=== PATIENT | male | born 1965 | race African-American/Black ===

== ENCOUNTER 2016-09-24 10:40 | Inpatient (IN) | payer OTHER ==
[2016-09-24 11:53] VITALS: BMI 32.5
--- NOTE | 2016-09-24 16:35 | HP ---
Admission ROS [facility] Chief Complaint: I WANT TO GO TO REHAB Allergies/Adverse Reactions: Allergies Allergy/AdvReac Type Severity Reaction Status Date / Time No Known Allergies Allergy Verified 09/24/16 15:08 History of Present Illness: 51 YEARS OLD MALE WITH LONG HISTORY OF ALCOHOL NICOTINE DEPENDENCE HAS CHRONIC LOWER BACK PAIN TRATED WITH GABAPENTIN GASTRIC BY PASS 2002, POSITIVE PPD CONSTIPATION AND SCHIZOPHRENIA IS ADMITTED TO REHAB Exam Limitations: No Limitations - Ebola screening Have you traveled outside of the country in the last 21 days: No Have you had contact with anyone from an Ebola affected area: No Have you been sick,other than usual withdrawal symptoms: No Do you have a fever: No - Review of Systems Constitutional: Weight Stable EENT: reports: Dental Problems (UPPER TEETH MISSING NO DENTURE) Respiratory: reports: No Symptoms reported Cardiac: reports: No Symptoms Reported GI: reports: Constipated : reports: No Symptoms Reported Musculoskeletal: reports: Back Pain Integumentary: reports: No Symptoms Reported Neuro: reports: No Symptoms reported Endocrine: reports: No Symptoms Reported Hematology: reports: No Symptoms Reported Psychiatric: reports: Judgement Intact, Mood/Affect Appropiate, Orientated x3 Other Systems: Reviewed and Negative Patient History - Patient Medical History Hx Anemia: No Hx Asthma: No Hx Chronic Obstructive Pulmonary Disease (COPD): No Hx Cancer: No Hx Cardiac Disorders: No Hx Congestive Heart Failure: No Hx Hypertension: No Hx Hypercholesterolemia: No Hx Pacemaker: No HX Cerebrovascular Accident: No Hx Seizures: No Hx Dementia: No Hx Diabetes: No Hx Gastrointestinal Disorders: No Hx Liver Disease: No Hx Genitourinary Disorders: No Hx Sexually Transmitted Disorders: No Hx Renal Disease (ESRD): No Hx Thyroid Disease: No Hx Human Immunodeficiency Virus (HIV): No (last 09/19 negative) Hx Hepatitis C: No Hx Depression: No Hx Suicide Attempt: Yes (overdose in 2013 [facility]) Hx Bipolar Disorder: No Hx Schizophrenia: Yes (shizoaffective disorder,) - Patient Surgical History Past Surgical History: Yes Hx Neurologic Surgery: No Hx Cataract Extraction: No Hx Cardiac Surgery: No Hx Lung Surgery: No Hx Breast Surgery: No Hx Breast Biopsy: No Hx Abdominal Surgery: Yes (2002) Hx Appendectomy: No Hx Cholecystectomy: No Hx Genitourinary Surgery: No Hx Orthopedic Surgery: No Other Surgical History: s/p tracheostomy for obstructive apnea,s/p gastric by pass surgery Anesthesia Reaction: No - PPD History Previous Implant?: Yes Documented Results: Negative w/o proof Implanted On Prior R Admission?: Yes Date: 10/16/14 Results: Negative in [place] PPD to be Administered?: Yes - Smoking Cessation Smoking history: Current every day smoker Have you smoked in the past 12 months: Yes Aproximately how many cigarettes per day: 6 Cigars Per Day: 0 Hx Chewing Tobacco Use: No Initiated information on smoking cessation: Yes 'Breaking Loose' booklet given: 09/24/16 - Substance & Tx. History Hx Alcohol Use: Yes Hx Substance Use: Yes Substance Use Type: Alcohol, Cocaine Hx Substance Use Treatment: Yes (10/13-11/08/14 [facility]) - Substances Abused Alcohol Route: Oral Frequency: Daily Amount used: MYNOR MONTIEL Age of first use: 11 Date of Last Use: 08/27/16 Family Disease History - Family Disease History Family Disease History: Heart Disease: Father (), Mother, Other: Brother (NO CONTACT) Admission Physical Exam S - Vital Signs Vital Signs: Vital Signs - 24 hr 09/24/16 11:51 Temperature 97.5 F L Pulse Rate 100 H Respiratory 18 Rate Blood Pressure 108/59 - Physical General Appearance: Yes: No Apparent Distress, Appropriately Dressed, Obese HEENTM: Yes: Hearing grossly Normal, Normal ENT Inspection, Normocephalic, Normal Voice, Other (MULTIPLE TEETH MISSING) Respiratory: Yes: Chest Non-Tender, Lungs Clear, Normal Breath Sounds, No Respiratory Distress, No Accessory Muscle Use Neck: Yes: Supple, Trachea in good position Breast: Yes: Breasts Symetrical Cardiology: Yes: Regular Rhythm, S1, S2, Tachycardia Abdominal: Yes: Non Tender, Soft, Decreased BS, Surgical Scar (2002) Genitourinary: Yes: Within Normal Limits Back: Yes: Normal Inspection, Other (CHRONIC LOWER BACK PAIN) Musculoskeletal: Yes: full range of Motion, Gait Steady, Back pain Extremities: Yes: Normal Inspection, Normal Range of Motion, Non-Tender Neurological: Yes: Fully Oriented, Alert, Motor Strength 5/5, Normal Mood/Affect , Normal Response Integumentary: Yes: Normal Color, Warm Lymphatic: Yes: Within Normal Limits - Diagnostic (1) Nicotine dependence Current Visit: Yes Status: Acute Qualifiers: Nicotine product type: cigarettes Substance use status: in withdrawal Qualified Code(s): F17.213 - Nicotine dependence, cigarettes, with withdrawal (2) Alcohol dependence with uncomplicated withdrawal Current Visit: Yes Status: Acute (3) Cocaine dependence, uncomplicated Current Visit: Yes Status: Chronic (4) Constipation by delayed colonic transit Current Visit: Yes Status: Chronic (5) Chronic lower back pain Current Visit: Yes Status: Chronic Qualifiers: Back pain laterality: midline Sciatica presence: with sciatica Qualified Code(s): - (6) S/P gastric bypass Current Visit: Yes Status: Resolved (7) Schizophrenia Current Visit: Yes Status: Chronic Qualifiers: Schizophrenia type: other Qualified Code(s): F20.89 - Other schizophrenia; F20.8 - Other schizophrenia Cleared for Admission [facility] - Detox or Rehab [facility] Level of Care: Observation Bed Detox Regimen/Protocol: Not Applicable Claeared for Rehab Admission: Yes [facility] Breath Alcohol Content Breath Alcohol Content: 0 Urine Drug Screen - Results Drug Screen Negative: Yes
[2016-09-24] MEDS ORDERED: diphenhydrAMINE HCL 50 MG CAPSULE PO PRN (16:38)
[2016-09-24] MEDS ORDERED: LOPERAMIDE HCL 2 MG CAPSULE PO PRN (16:38)
[2016-09-24] MEDS ORDERED: ACETAMINOPHEN 325 MG TABLET (FP) PO PRN (16:38)
[2016-09-24] MEDS ORDERED: guaiFENesin/D-METHORPHAN HB 10 ML UNIT-DOSE CUPS PO PRN (16:38)
[2016-09-24] MEDS ORDERED: MAGNESIUM HYDROX 2400MG/30ML ORAL SUSPENSION 30 ML CUP PO PRN (16:38)
[2016-09-24] MEDS ORDERED: MENTHOL/PHENOL 1 EACH UD MM PRN (16:38)
[2016-09-24] MEDS ORDERED: MAG HYDROX/AL HYDROX/SIMETH 30 ML UNIT-DOSE CUP PO PRN (16:38)
[2016-09-24] MEDS ORDERED: hydrOXYzine PAMOATE 50 MG CAPSULE (FP) PO PRN (16:38)
[2016-09-24] MEDS ORDERED: P-EPHED 60MG/TRIPROLIDI 2.5MG TABLET PO PRN (16:38)
[2016-09-24] MEDS ORDERED: NICOTINE POLACRILEX 2 MG GUM BC PRN (16:38)
[2016-09-24] MEDS ORDERED: IBUPROFEN 400 MG TABLET (FP) PO PRN (16:38)
[2016-09-24] MEDS ORDERED: MAGNESIUM CITRATE 300 ML BOTTLE PO PRN (16:38)
[2016-09-24] MEDS: risperiDONE 2 MG TABLET PO SCH (21:55)
[2016-09-24] MEDS: DIVALPROEX SODIUM 250 MG TABLET E.C. (FP) PO SCH (21:55)
[2016-09-24] MEDS: THIAMINE HCL 100 MG TABLET (FP) PO SCH (21:55)
[2016-09-24] MEDS: DOCUSATE SODIUM 100 MG CAPSULE (FP) PO SCH (21:55)
[2016-09-24] MEDS ORDERED: BENZTROPINE MESYLATE 0.5 MG TABLET (FP) PO SCH (22:00)
[2016-09-24] MEDS: GABAPENTIN 300 MG CAPSULE (FP) PO SCH (22:22)
[2016-09-24] MEDS ORDERED: PT OWN MED DRAWER 7, Y5N ONE (22:52)
--- NOTE | 2016-09-25 06:58 | HP ---
Psychiatrist Admission - Data Date of interview: 09/25/16 Admission source: [facility] Identifying data: This is the second [facility] admission for this 51 years Black male, father of 4 children, unemployed on SSI, homeless Medical History: Significant for chronic LBP, S/P Gastric bypass surgery. Smoke 6 cigarettes daily Psychiatric History: Reports that his first psychiatric contact wasin 2006 when he was treated with psychotherapy for depression at [facility]. His first psychiatric admissions was in 2008 when he was admitted to a psychiatric hospital for suicidal attempt by taking overdose of pills. Reports 3 subsequent admissions for auditory hallucinations, suicidal ideations and depression to [facility] in 2014 & 2016 and most recently to [facility] for 2 weeks. He was discharged yesterday on Depakote 750 mg po BID, Risperdal 2 mg po BID and Cogentin 0.5 mg po BID and referred here for inpt rehab. He is diagnosed with Schizoaffectve Disorder. At present, denies experiencing psychotic, manic or depressive symptoms as wel as SI/HI Physical/Sexual Abuse/Trauma History: Denies history of emotional, physical or sexual abuse as well as DV relationship Additional Comment: Reports history of multiple previous arrests including felony convictions. Claims he does not recall number of felony convictions. Denies being on parole/probation at present Vital Signs: Vital Signs - 24 hr 09/24/16 09/25/16 11:51 03:30 Temperature 97.5 F L Pulse Rate 100 H Respiratory 18 18 Rate Blood Pressure 108/59 Allergies/Adverse Reactions: Allergies Allergy/AdvReac Type Severity Reaction Status Date / Time No Known Allergies Allergy Verified 09/24/16 15:08 Date of last physical exam: 09/24/16 Concur with the findings of this exam: Yes - Substance Abuse/Tx History Hx Alcohol Use: Yes Hx Substance Use: No Substance Use Type: Alcohol (Started drinking alcohol at age 11, consumes one gallon of vodka daily. Last drink on 08/27/16) Hx Substance Use Treatment: Yes (4 previous inpt detox & 4 inpt rehab) - Admission Criteria Previous failed treatment: Yes Poor recovery environment: Yes Comorbidities: Yes Lacks judgement: Yes Mental Status Exam - Mental Status Exam Alert and Oriented to: Time, Place, Person Cognitive Function: Fair Patient Appearance: Disheveled Mood: Hopeful, Euthymic Affect: Blunted Patient Behavior: Cooperative Speech Pattern: Clear Voice Loudness: Normal Thought Process: Intact Thought Disorder: Not Present Hallucinations: Denies Suicidal Ideation: Denies Homicidal Ideation: Denies Insight/Judgement: Fair Sleep: Fair Appetite: Good Muscle strength/Tone: Normal Gait/Station: Normal Psychiatric Findings - Problem List ([place] 1, 2,3) (1) Alcohol dependence with uncomplicated withdrawal Current Visit: Yes Status: Acute (2) Nicotine dependence Current Visit: Yes Status: Acute Qualifiers: Nicotine product type: cigarettes Substance use status: in withdrawal Qualified Code(s): F17.213 - Nicotine dependence, cigarettes, with withdrawal (3) Schizoaffective disorder Current Visit: No Status: Acute (4) Chronic lower back pain Current Visit: Yes Status: Chronic Qualifiers: Back pain laterality: midline Sciatica presence: with sciatica (5) S/P gastric bypass Current Visit: Yes Status: Resolved (6) Status post tracheostomy Current Visit: No Status: Acute (7) Cocaine dependence, uncomplicated Current Visit: Yes Status: Chronic - Initial Treatment Plan Initial Treatment Plan: 1) Continue Depakote 750 mg po BID, Riperdal 2 mg po BID and Cogentin 0.5 mg po BID. 2) Valproic Acid serum level. 3) Monitor progress
[2016-09-25] MEDS: GABAPENTIN 300 MG CAPSULE (FP) PO SCH ×3 (07:05→21:11)
[2016-09-25 07:52] LABS: URINE APPEARANCE CLEAR; URINE BILIRUBIN NEGATIVE (NEGATIVE); URINE BLOOD NEGATIVE (NEGATIVE); URINE COLOR YELLOW; URINE GLUCOSE (UA) 1+ (NEGATIVE); URINE KETONE TRACE (NEGATIVE); URINE NITRITE NEGATIVE (NEGATIVE); URINE PROTEIN NEGATIVE (NEGATIVE); URINE UROBILINOGEN NEGATIVE E.U./dl (0.2-1.0)
[2016-09-25 07:54] LABS: URINE LEUK ESTERASE TRACE (NEGATIVE)
[2016-09-25 08:54] LABS: URINE MUCUS RARE; URINE WBC 12 /hpf (3-5)
[2016-09-25 09:48] LABS: MCH 31.8 pg (25.7-33.7); MCHC 32.8 g/dl (32.0-35.9); MEAN CELL VOLUME 96.8 fl (80-96); PLATELET COUNT 154 K/MM3 (134-434); WHITE BLOOD COUNT 7.4 K/mm3 (4.0-10.0)
[2016-09-25 10:16] LABS: ALBUMIN 3.3 g/dl (3.4-5.0); ANION GAP 8 (8-16); CALCIUM 9.1 mg/dL (8.5-10.1); CO2 30 mmol/L (21-32); GLUCOSE,RANDOM 91 mg/dL (74-106)
[2016-09-25] MEDS: PRENATAL VITAMINS W/ FOLIC ACID TABLET (FP) PO SCH (10:16)
[2016-09-25] MEDS: DOCUSATE SODIUM 100 MG CAPSULE (FP) PO SCH ×2 (10:16→21:10)
[2016-09-25] MEDS: risperiDONE 2 MG TABLET PO SCH ×2 (10:16→21:11)
[2016-09-25] MEDS: DIVALPROEX SODIUM 250 MG TABLET E.C. (FP) PO SCH ×2 (10:17→21:10)
[2016-09-25] MEDS: BENZTROPINE MESYLATE 1 MG TABLET (FP) PO SCH ×2 (10:18→22:00)
[2016-09-25] MEDS: NICOTINE 14 MG/24 HOURS TOPICAL PATCH TD SCH (10:19)
[2016-09-25 10:20] LABS: ALK PHOS 80 U/L (45-117); BILIRUBIN,TOTAL 0.6 mg/dL (0.2-1.0); CREATININE 0.9 mg/dL (0.7-1.3); SGOT/AST 14 U/L (15-37); SGPT/ALT 24 U/L (12-78); TOT PROT 7.4 g/dl (6.4-8.2)
[2016-09-25 11:05] LABS: HIV 1 & 2 AB NEGATIVE; HIV 1 AGp24 NEGATIVE
--- NOTE | 2016-09-25 11:05 | EKG ---
Test Reason : Blood Pressure : / mmHG Vent. Rate : 087 BPM Atrial Rate : 087 BPM P-R Int : 150 ms QRS Dur : 082 ms QT Int : 352 ms P-R-T Axes : 070 049 039 degrees QTc Int : 423 ms NORMAL SINUS RHYTHM NORMAL ECG NO PREVIOUS ECGS AVAILABLE Confirmed by NORI AVINA, NARGIS ([id number]) on 09/25/2016 11:05:00 AM Referred By: Confirmed By:NARGIS JULIO MD
[2016-09-25] MEDS: THIAMINE HCL 100 MG TABLET (FP) PO SCH (21:10)
[2016-09-26] MEDS: GABAPENTIN 300 MG CAPSULE (FP) PO SCH ×3 (06:22→22:22)
[2016-09-26] MEDS: PRENATAL VITAMINS W/ FOLIC ACID TABLET (FP) PO SCH (09:37)
[2016-09-26] MEDS: risperiDONE 2 MG TABLET PO SCH ×2 (09:38→21:26)
[2016-09-26] MEDS: BENZTROPINE MESYLATE 1 MG TABLET (FP) PO SCH ×2 (09:38→21:26)
[2016-09-26] MEDS: DIVALPROEX SODIUM 250 MG TABLET E.C. (FP) PO SCH ×2 (09:38→22:21)
[2016-09-26] MEDS: DOCUSATE SODIUM 100 MG CAPSULE (FP) PO SCH ×2 (09:39→21:27)
[2016-09-26] MEDS: NICOTINE 14 MG/24 HOURS TOPICAL PATCH TD SCH (09:41)
[2016-09-26] MEDS: THIAMINE HCL 100 MG TABLET (FP) PO SCH (21:27)
[2016-09-26] MEDS: AMMONIUM LACTATE 12% LOTION 225 GM BOTTLE TP SCH (22:55)
[2016-09-27] MEDS: DOCUSATE SODIUM 100 MG CAPSULE (FP) PO SCH ×3 (06:46→21:26)
[2016-09-27] MEDS: GABAPENTIN 300 MG CAPSULE (FP) PO SCH ×3 (06:46→21:27)
[2016-09-27] MEDS: FERROUS SO4 325 MG TABLET (FP) PO SCH (07:02)
[2016-09-27] MEDS: PRENATAL VITAMINS W/ FOLIC ACID TABLET (FP) PO SCH (10:16)
[2016-09-27] MEDS: DIVALPROEX SODIUM 250 MG TABLET E.C. (FP) PO SCH ×2 (10:16→21:26)
[2016-09-27] MEDS: risperiDONE 2 MG TABLET PO SCH ×2 (10:16→21:25)
[2016-09-27] MEDS: FOLIC ACID 1 MG TABLET (FP) PO SCH (10:17)
[2016-09-27] MEDS: BENZTROPINE MESYLATE 1 MG TABLET (FP) PO SCH ×2 (10:17→21:28)
[2016-09-27] MEDS: AMMONIUM LACTATE 12% LOTION 225 GM BOTTLE TP SCH ×2 (10:17→21:27)
[2016-09-27] MEDS: NICOTINE 14 MG/24 HOURS TOPICAL PATCH TD SCH (10:17)
[2016-09-27] MEDS: THIAMINE HCL 100 MG TABLET (FP) PO SCH (21:25)
[2016-09-28] MEDS: GABAPENTIN 300 MG CAPSULE (FP) PO SCH ×3 (06:13→21:05)
[2016-09-28] MEDS: DOCUSATE SODIUM 100 MG CAPSULE (FP) PO SCH ×3 (06:13→21:05)
[2016-09-28] MEDS: FERROUS SO4 325 MG TABLET (FP) PO SCH (07:05)
[2016-09-28] MEDS: BENZTROPINE MESYLATE 1 MG TABLET (FP) PO SCH ×2 (10:03→21:06)
[2016-09-28] MEDS: DIVALPROEX SODIUM 250 MG TABLET E.C. (FP) PO SCH ×2 (10:03→21:05)
[2016-09-28] MEDS: risperiDONE 2 MG TABLET PO SCH ×2 (10:03→21:05)
[2016-09-28] MEDS: FOLIC ACID 1 MG TABLET (FP) PO SCH (10:03)
[2016-09-28] MEDS: PRENATAL VITAMINS W/ FOLIC ACID TABLET (FP) PO SCH (10:03)
[2016-09-28] MEDS: AMMONIUM LACTATE 12% LOTION 225 GM BOTTLE TP SCH ×2 (10:05→21:06)
[2016-09-28] MEDS: NICOTINE 14 MG/24 HOURS TOPICAL PATCH TD SCH (10:05)
[2016-09-28] MEDS: THIAMINE HCL 100 MG TABLET (FP) PO SCH (21:05)
[2016-09-29] MEDS: GABAPENTIN 300 MG CAPSULE (FP) PO SCH ×3 (06:15→21:04)
[2016-09-29] MEDS: DOCUSATE SODIUM 100 MG CAPSULE (FP) PO SCH ×3 (06:15→21:03)
[2016-09-29] MEDS: FERROUS SO4 325 MG TABLET (FP) PO SCH (07:10)
[2016-09-29] MEDS: risperiDONE 2 MG TABLET PO SCH ×2 (10:20→21:03)
[2016-09-29] MEDS: BENZTROPINE MESYLATE 1 MG TABLET (FP) PO SCH ×2 (10:20→21:04)
[2016-09-29] MEDS: PRENATAL VITAMINS W/ FOLIC ACID TABLET (FP) PO SCH (10:20)
[2016-09-29] MEDS: DIVALPROEX SODIUM 250 MG TABLET E.C. (FP) PO SCH ×2 (10:20→22:09)
[2016-09-29] MEDS: FOLIC ACID 1 MG TABLET (FP) PO SCH (10:20)
[2016-09-29] MEDS: NICOTINE 14 MG/24 HOURS TOPICAL PATCH TD SCH (10:21)
[2016-09-29] MEDS: AMMONIUM LACTATE 12% LOTION 225 GM BOTTLE TP SCH ×2 (10:21→23:31)
[2016-09-29] MEDS: THIAMINE HCL 100 MG TABLET (FP) PO SCH (21:03)
[2016-09-30] MEDS: DOCUSATE SODIUM 100 MG CAPSULE (FP) PO SCH ×3 (06:29→21:06)
[2016-09-30] MEDS: GABAPENTIN 300 MG CAPSULE (FP) PO SCH ×3 (06:29→21:06)
[2016-09-30] MEDS: FERROUS SO4 325 MG TABLET (FP) PO SCH (07:21)
[2016-09-30] MEDS: FOLIC ACID 1 MG TABLET (FP) PO SCH (10:29)
[2016-09-30] MEDS: AMMONIUM LACTATE 12% LOTION 225 GM BOTTLE TP SCH ×2 (10:30→21:06)
[2016-09-30] MEDS: NICOTINE 14 MG/24 HOURS TOPICAL PATCH TD SCH (10:30)
[2016-09-30] MEDS: PRENATAL VITAMINS W/ FOLIC ACID TABLET (FP) PO SCH (10:31)
[2016-09-30] MEDS: BENZTROPINE MESYLATE 1 MG TABLET (FP) PO SCH ×2 (10:31→21:06)
[2016-09-30] MEDS: risperiDONE 2 MG TABLET PO SCH ×2 (10:31→21:06)
[2016-09-30] MEDS: DIVALPROEX SODIUM 250 MG TABLET E.C. (FP) PO SCH ×2 (11:39→21:05)
[2016-09-30] MEDS: THIAMINE HCL 100 MG TABLET (FP) PO SCH (21:05)
[2016-10-01] MEDS: DOCUSATE SODIUM 100 MG CAPSULE (FP) PO SCH ×3 (06:17→21:09)
[2016-10-01] MEDS: GABAPENTIN 300 MG CAPSULE (FP) PO SCH ×3 (06:17→22:07)
[2016-10-01] MEDS: FERROUS SO4 325 MG TABLET (FP) PO SCH (07:40)
[2016-10-01] MEDS: risperiDONE 2 MG TABLET PO SCH ×2 (10:16→21:08)
[2016-10-01] MEDS: DIVALPROEX SODIUM 250 MG TABLET E.C. (FP) PO SCH ×2 (10:16→21:08)
[2016-10-01] MEDS: BENZTROPINE MESYLATE 1 MG TABLET (FP) PO SCH ×2 (10:16→21:09)
[2016-10-01] MEDS: PRENATAL VITAMINS W/ FOLIC ACID TABLET (FP) PO SCH (10:16)
[2016-10-01] MEDS: FOLIC ACID 1 MG TABLET (FP) PO SCH (10:16)
[2016-10-01] MEDS: AMMONIUM LACTATE 12% LOTION 225 GM BOTTLE TP SCH ×2 (10:17→21:08)
[2016-10-01] MEDS: NICOTINE 14 MG/24 HOURS TOPICAL PATCH TD SCH (10:17)
[2016-10-01] MEDS: THIAMINE HCL 100 MG TABLET (FP) PO SCH (21:08)
[2016-10-02] MEDS: GABAPENTIN 300 MG CAPSULE (FP) PO SCH ×3 (06:08→21:39)
[2016-10-02] MEDS: DOCUSATE SODIUM 100 MG CAPSULE (FP) PO SCH ×3 (06:08→21:39)
[2016-10-02] MEDS: FERROUS SO4 325 MG TABLET (FP) PO SCH (07:04)
[2016-10-02] MEDS: PRENATAL VITAMINS W/ FOLIC ACID TABLET (FP) PO SCH (09:53)
[2016-10-02] MEDS: risperiDONE 2 MG TABLET PO SCH ×2 (09:53→21:39)
[2016-10-02] MEDS: DIVALPROEX SODIUM 250 MG TABLET E.C. (FP) PO SCH ×2 (09:54→21:39)
[2016-10-02] MEDS: FOLIC ACID 1 MG TABLET (FP) PO SCH (09:54)
[2016-10-02] MEDS: BENZTROPINE MESYLATE 1 MG TABLET (FP) PO SCH ×2 (09:54→21:40)
[2016-10-02] MEDS: AMMONIUM LACTATE 12% LOTION 225 GM BOTTLE TP SCH ×2 (09:55→21:40)
[2016-10-02] MEDS: NICOTINE 14 MG/24 HOURS TOPICAL PATCH TD SCH (12:45)
[2016-10-02] MEDS: THIAMINE HCL 100 MG TABLET (FP) PO SCH (21:39)
[2016-10-03] MEDS: DOCUSATE SODIUM 100 MG CAPSULE (FP) PO SCH ×3 (06:17→21:41)
[2016-10-03] MEDS: GABAPENTIN 300 MG CAPSULE (FP) PO SCH ×3 (06:17→21:41)
[2016-10-03] MEDS: FERROUS SO4 325 MG TABLET (FP) PO SCH (07:46)
[2016-10-03] MEDS: DIVALPROEX SODIUM 250 MG TABLET E.C. (FP) PO SCH ×2 (09:59→21:41)
[2016-10-03] MEDS: risperiDONE 2 MG TABLET PO SCH ×2 (09:59→21:41)
[2016-10-03] MEDS: BENZTROPINE MESYLATE 1 MG TABLET (FP) PO SCH ×2 (09:59→21:43)
[2016-10-03] MEDS: PRENATAL VITAMINS W/ FOLIC ACID TABLET (FP) PO SCH (10:00)
[2016-10-03] MEDS: NICOTINE 14 MG/24 HOURS TOPICAL PATCH TD SCH (10:00)
[2016-10-03] MEDS: FOLIC ACID 1 MG TABLET (FP) PO SCH (10:00)
[2016-10-03] MEDS: AMMONIUM LACTATE 12% LOTION 225 GM BOTTLE TP SCH ×2 (10:02→21:43)
[2016-10-03] MEDS: THIAMINE HCL 100 MG TABLET (FP) PO SCH (21:41)
[2016-10-04] MEDS: DOCUSATE SODIUM 100 MG CAPSULE (FP) PO SCH ×4 (06:14→21:33)
[2016-10-04] MEDS: GABAPENTIN 300 MG CAPSULE (FP) PO SCH ×4 (06:14→21:34)
[2016-10-04] MEDS: FERROUS SO4 325 MG TABLET (FP) PO SCH (07:20)
[2016-10-04] MEDS: BENZTROPINE MESYLATE 1 MG TABLET (FP) PO SCH ×2 (10:12→21:35)
[2016-10-04] MEDS: FOLIC ACID 1 MG TABLET (FP) PO SCH (10:12)
[2016-10-04] MEDS: AMMONIUM LACTATE 12% LOTION 225 GM BOTTLE TP SCH ×2 (10:12→21:35)
[2016-10-04] MEDS: DIVALPROEX SODIUM 250 MG TABLET E.C. (FP) PO SCH ×2 (10:12→21:34)
[2016-10-04] MEDS: risperiDONE 2 MG TABLET PO SCH ×2 (10:12→21:34)
[2016-10-04] MEDS: NICOTINE 14 MG/24 HOURS TOPICAL PATCH TD SCH (10:13)
[2016-10-04] MEDS: PRENATAL VITAMINS W/ FOLIC ACID TABLET (FP) PO SCH (10:13)
[2016-10-04] MEDS: THIAMINE HCL 100 MG TABLET (FP) PO SCH (21:33)
[2016-10-05] MEDS: GABAPENTIN 300 MG CAPSULE (FP) PO SCH ×3 (06:16→21:47)
[2016-10-05] MEDS: DOCUSATE SODIUM 100 MG CAPSULE (FP) PO SCH ×3 (06:16→21:47)
[2016-10-05] MEDS: FERROUS SO4 325 MG TABLET (FP) PO SCH (07:46)
[2016-10-05] MEDS: DIVALPROEX SODIUM 250 MG TABLET E.C. (FP) PO SCH ×2 (09:58→21:47)
[2016-10-05] MEDS: risperiDONE 2 MG TABLET PO SCH ×2 (09:58→21:47)
[2016-10-05] MEDS: BENZTROPINE MESYLATE 1 MG TABLET (FP) PO SCH ×2 (09:59→21:48)
[2016-10-05] MEDS: NICOTINE 14 MG/24 HOURS TOPICAL PATCH TD SCH (09:59)
[2016-10-05] MEDS: PRENATAL VITAMINS W/ FOLIC ACID TABLET (FP) PO SCH (09:59)
[2016-10-05] MEDS: FOLIC ACID 1 MG TABLET (FP) PO SCH (09:59)
[2016-10-05] MEDS: AMMONIUM LACTATE 12% LOTION 225 GM BOTTLE TP SCH ×2 (09:59→22:01)
[2016-10-05] MEDS: THIAMINE HCL 100 MG TABLET (FP) PO SCH (21:47)
[2016-10-06] MEDS: DOCUSATE SODIUM 100 MG CAPSULE (FP) PO SCH ×3 (06:17→21:38)
[2016-10-06] MEDS: GABAPENTIN 300 MG CAPSULE (FP) PO SCH ×3 (06:17→21:38)
[2016-10-06] MEDS: FERROUS SO4 325 MG TABLET (FP) PO SCH (07:35)
[2016-10-06] MEDS: risperiDONE 2 MG TABLET PO SCH ×2 (10:02→21:38)
[2016-10-06] MEDS: FOLIC ACID 1 MG TABLET (FP) PO SCH (10:02)
[2016-10-06] MEDS: DIVALPROEX SODIUM 250 MG TABLET E.C. (FP) PO SCH ×2 (10:02→21:38)
[2016-10-06] MEDS: PRENATAL VITAMINS W/ FOLIC ACID TABLET (FP) PO SCH (10:02)
[2016-10-06] MEDS: NICOTINE 14 MG/24 HOURS TOPICAL PATCH TD SCH (10:03)
[2016-10-06] MEDS: BENZTROPINE MESYLATE 1 MG TABLET (FP) PO SCH ×2 (10:03→21:39)
[2016-10-06] MEDS: AMMONIUM LACTATE 12% LOTION 225 GM BOTTLE TP SCH ×2 (10:04→21:40)
[2016-10-06] MEDS: THIAMINE HCL 100 MG TABLET (FP) PO SCH (21:38)
[2016-10-07] MEDS: DOCUSATE SODIUM 100 MG CAPSULE (FP) PO SCH ×3 (06:24→21:02)
[2016-10-07] MEDS: GABAPENTIN 300 MG CAPSULE (FP) PO SCH ×3 (06:25→21:01)
[2016-10-07] MEDS: FERROUS SO4 325 MG TABLET (FP) PO SCH (07:23)
[2016-10-07] MEDS: BENZTROPINE MESYLATE 1 MG TABLET (FP) PO SCH ×2 (10:27→21:02)
[2016-10-07] MEDS: AMMONIUM LACTATE 12% LOTION 225 GM BOTTLE TP SCH ×2 (10:28→21:02)
[2016-10-07] MEDS: risperiDONE 2 MG TABLET PO SCH ×2 (10:28→21:02)
[2016-10-07] MEDS: FOLIC ACID 1 MG TABLET (FP) PO SCH (10:28)
[2016-10-07] MEDS: PRENATAL VITAMINS W/ FOLIC ACID TABLET (FP) PO SCH (10:28)
[2016-10-07] MEDS: DIVALPROEX SODIUM 250 MG TABLET E.C. (FP) PO SCH ×2 (10:28→21:01)
[2016-10-07] MEDS: NICOTINE 14 MG/24 HOURS TOPICAL PATCH TD SCH (10:29)
[2016-10-07] MEDS: THIAMINE HCL 100 MG TABLET (FP) PO SCH (21:01)
[2016-10-08] MEDS: GABAPENTIN 300 MG CAPSULE (FP) PO SCH ×3 (06:24→21:02)
[2016-10-08] MEDS: DOCUSATE SODIUM 100 MG CAPSULE (FP) PO SCH ×3 (06:25→21:02)
[2016-10-08] MEDS: FERROUS SO4 325 MG TABLET (FP) PO SCH (07:21)
[2016-10-08] MEDS: PRENATAL VITAMINS W/ FOLIC ACID TABLET (FP) PO SCH (10:08)
[2016-10-08] MEDS: DIVALPROEX SODIUM 250 MG TABLET E.C. (FP) PO SCH ×2 (10:09→21:02)
[2016-10-08] MEDS: FOLIC ACID 1 MG TABLET (FP) PO SCH (10:09)
[2016-10-08] MEDS: BENZTROPINE MESYLATE 1 MG TABLET (FP) PO SCH ×2 (10:09→21:02)
[2016-10-08] MEDS: NICOTINE 14 MG/24 HOURS TOPICAL PATCH TD SCH (10:09)
[2016-10-08] MEDS: risperiDONE 2 MG TABLET PO SCH ×2 (10:09→21:02)
[2016-10-08] MEDS: AMMONIUM LACTATE 12% LOTION 225 GM BOTTLE TP SCH ×2 (10:10→21:03)
[2016-10-08] MEDS: THIAMINE HCL 100 MG TABLET (FP) PO SCH (21:02)
[2016-10-09] MEDS: DOCUSATE SODIUM 100 MG CAPSULE (FP) PO SCH (06:03)
[2016-10-09] MEDS: GABAPENTIN 300 MG CAPSULE (FP) PO SCH (06:03)
[2016-10-09 06:37] VITALS: BP 100/51; PULSE 76; TEMP 97.7
[2016-10-09] MEDS: FERROUS SO4 325 MG TABLET (FP) PO SCH (07:11)
[2016-10-09] MEDS ORDERED: PT OWN MED DRAWER 7, Y5N ONE (08:40)
[2016-10-09] MEDS: risperiDONE 2 MG TABLET PO SCH (09:12)
[2016-10-09] MEDS: DIVALPROEX SODIUM 250 MG TABLET E.C. (FP) PO SCH (09:12)
[2016-10-09] MEDS: FOLIC ACID 1 MG TABLET (FP) PO SCH (09:12)
[2016-10-09] MEDS: BENZTROPINE MESYLATE 1 MG TABLET (FP) PO SCH (09:12)
[2016-10-09] MEDS: PRENATAL VITAMINS W/ FOLIC ACID TABLET (FP) PO SCH (09:13)
[2016-10-09] MEDS: AMMONIUM LACTATE 12% LOTION 225 GM BOTTLE TP SCH (09:19)
[2016-10-09] MEDS: NICOTINE 14 MG/24 HOURS TOPICAL PATCH TD SCH (09:19)
--- NOTE | 2016-10-09 09:23 | PN ---
Psychiatric Progress Note Vital Signs: Vital Signs Period Temp Pulse Resp BP Sys/[place] Pulse Ox Last 24 Hr 97.7 F 76 16-18 100/51 Date of Session: 10/09/16 Chief Complaint:: discharge visit HPI: Patient has addressed aalcohol, cocaine, nicotine dependence comorbid Schizoaffective disorder. ROS: chronic LBP, S/P Gastric bypass surgery Current Medications: Active Medications Generic Name Dose Route Start Last Admin Trade Name Freq PRN Reason Stop Dose Admin Acetaminophen 650 mg 09/24/16 16:38 Tylenol - PO Q4H PRN PAIN Al Hydroxide/Mg Hydroxide 30 ml 09/24/16 16:38 Mylanta Oral Suspension - PO Q6H PRN DYSPEPSIA Benztropine Mesylate 0.5 mg 09/25/16 10:00 10/09/16 09:12 Cogentin - PO 0.5 mg BID BUNNY Administration Diphenhydramine HCl 50 mg 09/24/16 16:38 Benadryl - PO HSMR1 PRN INSOMNIA Divalproex Sodium 750 mg 09/24/16 22:00 10/09/16 09:12 Depakote - PO 750 mg BID BUNNY Administration Docusate Sodium 100 mg 09/26/16 22:00 10/09/16 06:03 Colace - PO 100 mg TID BUNNY Administration Eucalyptus/Menthol/Phenol/Sorbitol 1 each 09/24/16 16:38 Cepastat Lozenge - MM Q4H PRN SORE THROAT Ferrous Sulfate 325 mg 09/27/16 08:00 10/09/16 07:11 Feosol - PO 325 mg DAILY@0800 BUNNY Administration Folic Acid 1 mg 09/27/16 10:00 10/09/16 09:12 Folic Acid - PO 1 mg DAILY BUNNY Administration Gabapentin 300 mg 09/24/16 22:00 10/09/16 06:03 Neurontin - PO 300 mg TID BUNNY Administration Guaifenesin 10 ml 09/24/16 16:38 Robitussin Dm - PO Q6H PRN COUGH Hydroxyzine Pamoate 50 mg 09/24/16 16:38 Vistaril - PO Q4H PRN AGITATION Ibuprofen 400 mg 09/24/16 16:38 Motrin - PO Q6H PRN SEVERE PAIN Lactic Acid 1 applic 09/26/16 22:00 10/08/16 21:03 Lac-Hydrin 12 TP Not Given BID BUNNY Loperamide HCl 4 mg 09/24/16 16:38 Imodium - PO Q6H PRN DIARRHEA Magnesium Citrate 300 ml 09/24/16 16:38 Citroma - PO Q48H PRN CONSTIPATION Magnesium Hydroxide 30 ml 09/24/16 16:38 Milk Of Magnesia - PO DAILY PRN CONSTIPATION Nicotine 14 mg 09/25/16 10:00 10/08/16 10:09 Nicoderm Patch - TD Not Given DAILY BUNNY Nicotine Polacrilex 2 mg 09/24/16 16:38 Nicorette Gum - BC Q2H PRN NICOTINE REPLACEMENT RX Multivit/Folic Acid/Iron 1 tab 09/25/16 10:00 10/09/16 09:13 Vitamins (Sjr) - PO 1 tab DAILY BUNNY Administration Pseudoephedrine/Triprolidine 1 combo 09/24/16 16:38 Actifed - PO TID PRN NASAL CONGESTION Risperidone 2 mg 09/24/16 22:00 10/09/16 09:12 Risperdal - PO 2 mg BID BUNNY Administration Thiamine HCl 100 mg 09/24/16 22:00 10/08/16 21:02 Vitamin B1 - PO 100 mg HS BUNNY Administration Current Side Effect: No Lab tests ordered: No Lab tests reviewed: Yes Provider note:: Patient has completed today his treatment and met his goals, will continue to [facility]. He verbalized understanding the importance of chnaging behavior , utilize all supports availbale to prevent relapses and continue maintain abstinence. His Depakote blood level noted - WNL (67.375). Discussed with the patient importance of taking medications as directed and to follow up with medical appoinments. Patient continues to finding that his current medication (risperdal, depakote and cogentin) have been effective, medications well tolaretd, scripts ptovided for 30 days, patient is stabla for discharge today. Total face to face time:: 35 Mental Status Exam - Mental Status Exam Alert and Oriented to: Time, Place, Person Cognitive Function: Good Patient Appearance: Well Groomed Mood: Hopeful Affect: Appropriate, Mood Congruent Patient Behavior: Appropriate, Cooperative Speech Pattern: Clear, Appropriate Voice Loudness: Normal Thought Process: Intact, Goal Oriented Thought Disorder: Not Present Hallucinations: Denies Suicidal Ideation: Denies Homicidal Ideation: Denies Insight/Judgement: Fair Sleep: Fair Appetite: Good Muscle strength/Tone: Normal Gait/Station: Normal Psychiatric Treatment Plan - Problem List (3) Nicotine dependence Qualifiers: Nicotine product type: cigarettes Substance use status: in withdrawal Qualified Code(s): F17.213 - Nicotine dependence, cigarettes, with withdrawal
== END 2016-10-09 09:20 | disposition home or self-care (01) | DRG 772 ==
LOC: YASAS 10:40 → Y3W 15:08
PROVIDERS: ADMIT Psychiatry & Neurology Psychiatry; ATTEND Psychiatry & Neurology Psychiatry
PROC: HZ42ZZZ Group Counseling for Substance Abuse Treatment, Cognitive-Behavioral (ICD-10-PCS; principal; 2016-09-24)
DX: F10.20 Alcohol dependence, uncomplicated (principal); F14.20 Cocaine dependence, uncomplicated; F17.210 Nicotine dependence, cigarettes, uncomplicated; F25.9 Schizoaffective disorder, unspecified; R00.0 Tachycardia, unspecified; M54.5 Low back pain; G89.29 Other chronic pain; K59.09 Other constipation; E66.9 Obesity, unspecified; Z68.32 Body mass index [BMI] 32.0-32.9, adult; Z98.84 Bariatric surgery status; Z93.0 Tracheostomy status; Z91.5 Personal history of self-harm; Z59.0 Homelessness
CPT/HCPCS: 36415; 80053; 80164; 81003; 81015; 85027; 86593; 86803; 87389; 93005; 93010

== ENCOUNTER 2020-10-05 12:48 | Inpatient (IN) | payer OTHER ==
[2020-10-05 13:52] VITALS: BMI 35.3
[2020-10-05] MEDS ORDERED: MAG HYDROX/AL HYDROX/SIMETH 30 ML UNIT-DOSE CUP PO PRN (19:41)
[2020-10-05] MEDS ORDERED: MAGNESIUM CITRATE 300 ML BOTTLE PO PRN (19:41)
[2020-10-05] MEDS ORDERED: P-EPHED 60MG/TRIPROLIDI 2.5MG TABLET PO PRN (19:41)
[2020-10-05] MEDS ORDERED: MAGNESIUM HYDROX 2400MG/30ML ORAL SUSPENSION 30 ML CUP PO PRN (19:41)
[2020-10-05] MEDS ORDERED: guaiFENesin 200 MG/10 ML 10 ML UNIT-DOSE CUPS PO PRN (19:41)
[2020-10-05] MEDS ORDERED: LOPERAMIDE HCL 2 MG CAPSULE PO PRN (19:41)
[2020-10-05] MEDS ORDERED: hydrOXYzine PAMOATE 25 MG CAPSULE (FP) PO PRN (19:41)
[2020-10-05] MEDS: THIAMINE HCL 100 MG TABLET (FP) PO SCH (21:55)
[2020-10-05] MEDS: MELATONIN 5 MG TABLETS PO SCH (21:55)
[2020-10-05] MEDS: BACITRACIN 0.9 GM PACKET TP SCH (21:56)
[2020-10-05] MEDS ORDERED: TUBERCULIN PPD 5 TU/0.1ML VIAL ID ONE (22:05)
[2020-10-06] MEDS: PRENATAL VITAMINS W/ FOLIC ACID TABLET (FP) PO SCH (09:43)
[2020-10-06] MEDS: BACITRACIN 0.9 GM PACKET TP SCH ×2 (09:43→21:27)
[2020-10-06 09:57] LABS: HEMATOCRIT 38.7 % (35.4-49); HEMOGLOBIN 12.9 GM/dL (11.7-16.9); MCH 31.1 pg (25.7-33.7); MCHC 33.4 g/dl (32.0-35.9); MEAN CELL VOLUME 93.2 fl (80-96); MEAN PLT VOLUME 9.3 fl (7.5-11.1); PLATELET COUNT 309 10^3/uL (134-434); RBC 4.15 M/mm3 (4.00-5.60); RDW 13.7 % (11.9-15.9)
[2020-10-06 10:04] LABS: ALBUMIN 2.8 g/dl (3.4-5.0)
[2020-10-06 10:05] LABS: BLOOD UREA NITROGEN 6.6 mg/dL (7-18); CALCIUM 8.8 mg/dL (8.5-10.1)
[2020-10-06 10:10] LABS: TOT PROT 6.5 g/dl (6.4-8.2)
[2020-10-06 10:16] LABS: PH,URINE 5.5 (5.0-8.0); URINE APPEARANCE Clear; URINE BILIRUBIN Negative (NEGATIVE); URINE COLOR Yellow; URINE GLUCOSE (UA) Negative (NEGATIVE); URINE KETONE Negative (NEGATIVE); URINE LEUK ESTERASE Negative (NEGATIVE); URINE NITRITE Negative (NEGATIVE); URINE PROTEIN Negative (NEGATIVE); URINE UROBILINOGEN 0.2 mg/dL (0.2-1.0)
[2020-10-06 10:19] LABS: BILIRUBIN,TOTAL 0.3 mg/dL (0.2-1); CREATININE 0.8 mg/dL (0.55-1.3)
[2020-10-06] MEDS: ACETAMINOPHEN 325 MG TABLET (FP) PO PRN (15:20)
[2020-10-06] MEDS: IBUPROFEN 400 MG TABLET (FP) PO PRN (18:18)
[2020-10-06] MEDS: MELATONIN 5 MG TABLETS PO SCH (21:25)
[2020-10-06] MEDS: THIAMINE HCL 100 MG TABLET (FP) PO SCH (21:26)
[2020-10-06] MEDS: BENZTROPINE MESYLATE 1 MG TABLET PO SCH (21:26)
[2020-10-06] MEDS: HALOPERIDOL 5 MG TABLET PO SCH (21:26)
[2020-10-06] MEDS: DIVALPROEX 250 MG, DIVALPROEX 500 MG PO SCH (21:27)
[2020-10-06] MEDS ORDERED: DIVALPROEX SODIUM 250 MG TABLET E.C. PO SCH (22:00)
[2020-10-07] MEDS: BACITRACIN 0.9 GM PACKET TP SCH ×2 (09:58→21:28)
[2020-10-07] MEDS: HALOPERIDOL 5 MG TABLET PO SCH ×2 (09:58→21:25)
[2020-10-07] MEDS: PRENATAL VITAMINS W/ FOLIC ACID TABLET (FP) PO SCH (09:58)
[2020-10-07] MEDS: DIVALPROEX 250 MG, DIVALPROEX 500 MG PO SCH ×2 (09:58→21:27)
[2020-10-07] MEDS: BENZTROPINE MESYLATE 1 MG TABLET PO SCH ×2 (09:58→21:26)
[2020-10-07] MEDS: ARIPiprazole 2 MG TABLET PO SCH (09:59)
[2020-10-07] MEDS: ACETAMINOPHEN 325 MG TABLET (FP) PO PRN ×2 (09:59→14:55)
[2020-10-07] MEDS: IBUPROFEN 400 MG TABLET (FP) PO PRN (13:14)
[2020-10-07] MEDS: THIAMINE HCL 100 MG TABLET (FP) PO SCH (21:27)
[2020-10-07] MEDS: MELATONIN 5 MG TABLETS PO SCH (21:27)
[2020-10-08] MEDS: ACETAMINOPHEN 325 MG TABLET (FP) PO PRN ×3 (08:36→21:30)
[2020-10-08] MEDS: BENZTROPINE MESYLATE 1 MG TABLET PO SCH ×2 (09:35→21:28)
[2020-10-08] MEDS: PRENATAL VITAMINS W/ FOLIC ACID TABLET (FP) PO SCH (09:35)
[2020-10-08] MEDS: ARIPiprazole 2 MG TABLET PO SCH (09:35)
[2020-10-08] MEDS: BACITRACIN 0.9 GM PACKET TP SCH ×2 (09:35→22:02)
[2020-10-08] MEDS: DIVALPROEX 250 MG, DIVALPROEX 500 MG PO SCH ×2 (09:35→21:27)
[2020-10-08] MEDS: HALOPERIDOL 5 MG TABLET PO SCH ×2 (09:35→21:27)
[2020-10-08] MEDS: IBUPROFEN 400 MG TABLET (FP) PO PRN (13:33)
[2020-10-08] MEDS: THIAMINE HCL 100 MG TABLET (FP) PO SCH (21:29)
[2020-10-08] MEDS: MELATONIN 5 MG TABLETS PO SCH (21:29)
[2020-10-09] MEDS: ACETAMINOPHEN 325 MG TABLET (FP) PO PRN ×3 (06:02→21:17)
[2020-10-09] MEDS: DIVALPROEX 250 MG, DIVALPROEX 500 MG PO SCH ×2 (10:10→21:15)
[2020-10-09] MEDS: PRENATAL VITAMINS W/ FOLIC ACID TABLET (FP) PO SCH (10:10)
[2020-10-09] MEDS: HALOPERIDOL 5 MG TABLET PO SCH ×2 (10:10→21:16)
[2020-10-09] MEDS: IBUPROFEN 400 MG TABLET (FP) PO PRN ×2 (10:11→18:00)
[2020-10-09] MEDS: BENZTROPINE MESYLATE 1 MG TABLET PO SCH ×2 (10:11→21:16)
[2020-10-09] MEDS: BACITRACIN 0.9 GM PACKET TP SCH ×2 (10:11→21:16)
[2020-10-09] MEDS: ARIPiprazole 2 MG TABLET PO SCH (10:11)
[2020-10-09] MEDS: MELATONIN 5 MG TABLETS PO SCH (21:15)
[2020-10-09] MEDS: THIAMINE HCL 100 MG TABLET (FP) PO SCH (21:15)
[2020-10-10] MEDS: PRENATAL VITAMINS W/ FOLIC ACID TABLET (FP) PO SCH (09:10)
[2020-10-10] MEDS: DIVALPROEX 250 MG, DIVALPROEX 500 MG PO SCH ×2 (09:10→21:21)
[2020-10-10] MEDS: BACITRACIN 0.9 GM PACKET TP SCH ×2 (09:11→21:21)
[2020-10-10] MEDS: HALOPERIDOL 5 MG TABLET PO SCH ×2 (09:11→21:21)
[2020-10-10] MEDS: ARIPiprazole 2 MG TABLET PO SCH (09:11)
[2020-10-10] MEDS: ACETAMINOPHEN 325 MG TABLET (FP) PO PRN ×2 (09:11→16:20)
[2020-10-10] MEDS: BENZTROPINE MESYLATE 1 MG TABLET PO SCH ×2 (10:23→21:21)
[2020-10-10] MEDS: IBUPROFEN 400 MG TABLET (FP) PO PRN ×2 (12:47→19:45)
[2020-10-10] MEDS: MELATONIN 5 MG TABLETS PO SCH (21:21)
[2020-10-10] MEDS: THIAMINE HCL 100 MG TABLET (FP) PO SCH (21:21)
[2020-10-11] MEDS: ACETAMINOPHEN 325 MG TABLET (FP) PO PRN ×3 (07:14→21:16)
[2020-10-11] MEDS: PRENATAL VITAMINS W/ FOLIC ACID TABLET (FP) PO SCH (09:57)
[2020-10-11] MEDS: HALOPERIDOL 5 MG TABLET PO SCH ×2 (09:57→21:14)
[2020-10-11] MEDS: BENZTROPINE MESYLATE 1 MG TABLET PO SCH ×2 (09:57→21:14)
[2020-10-11] MEDS: DIVALPROEX 250 MG, DIVALPROEX 500 MG PO SCH ×2 (09:57→21:14)
[2020-10-11] MEDS: BACITRACIN 0.9 GM PACKET TP SCH ×2 (09:57→21:14)
[2020-10-11] MEDS: ARIPiprazole 2 MG TABLET PO SCH (09:57)
[2020-10-11] MEDS: IBUPROFEN 400 MG TABLET (FP) PO PRN (10:00)
[2020-10-11] MEDS: IBUPROFEN 600 MG TABLET (FP) PO PRN (17:36)
[2020-10-11] MEDS: MELATONIN 5 MG TABLETS PO SCH (21:14)
[2020-10-11] MEDS: THIAMINE HCL 100 MG TABLET (FP) PO SCH (21:14)
[2020-10-11] MEDS: METHYL SALICYLATE/MENTHOL OINT 30 GM TUBE TP SCH (21:15)
[2020-10-11] MEDS: LIDOCAINE PATCH REMOVAL MC SCH (21:43)
[2020-10-12] MEDS: LIDOCAINE 5% TOPICAL PATCH TP SCH ×2 (01:09→09:17)
[2020-10-12] MEDS: DIVALPROEX 250 MG, DIVALPROEX 500 MG PO SCH ×2 (09:17→21:25)
[2020-10-12] MEDS: BACITRACIN 0.9 GM PACKET TP SCH ×2 (09:18→21:27)
[2020-10-12] MEDS: ACETAMINOPHEN 325 MG TABLET (FP) PO PRN ×3 (09:18→21:26)
[2020-10-12] MEDS: ARIPiprazole 2 MG TABLET PO SCH (09:18)
[2020-10-12] MEDS: BENZTROPINE MESYLATE 1 MG TABLET PO SCH ×2 (09:18→21:26)
[2020-10-12] MEDS: PRENATAL VITAMINS W/ FOLIC ACID TABLET (FP) PO SCH (09:19)
[2020-10-12] MEDS: HALOPERIDOL 5 MG TABLET PO SCH ×2 (09:22→21:25)
[2020-10-12] MEDS: IBUPROFEN 400 MG TABLET (FP) PO PRN (17:49)
[2020-10-12] MEDS: MELATONIN 5 MG TABLETS PO SCH (21:26)
[2020-10-12] MEDS: THIAMINE HCL 100 MG TABLET (FP) PO SCH (21:26)
[2020-10-12] MEDS: LIDOCAINE PATCH REMOVAL MC SCH (21:27)
[2020-10-12] MEDS: METHYL SALICYLATE/MENTHOL OINT 30 GM TUBE TP SCH (21:27)
[2020-10-13] MEDS: BACITRACIN 0.9 GM PACKET TP SCH ×2 (09:42→21:17)
[2020-10-13] MEDS: PRENATAL VITAMINS W/ FOLIC ACID TABLET (FP) PO SCH (09:42)
[2020-10-13] MEDS: BENZTROPINE MESYLATE 1 MG TABLET PO SCH ×2 (09:42→21:17)
[2020-10-13] MEDS: HALOPERIDOL 5 MG TABLET PO SCH ×2 (09:42→21:17)
[2020-10-13] MEDS: DIVALPROEX 250 MG, DIVALPROEX 500 MG PO SCH ×2 (09:42→21:17)
[2020-10-13] MEDS: ARIPiprazole 2 MG TABLET PO SCH (09:42)
[2020-10-13] MEDS: LIDOCAINE 5% TOPICAL PATCH TP SCH (09:43)
[2020-10-13] MEDS: ACETAMINOPHEN 325 MG TABLET (FP) PO PRN ×2 (09:44→14:36)
[2020-10-13] MEDS: MELATONIN 5 MG TABLETS PO SCH (21:17)
[2020-10-13] MEDS: LIDOCAINE PATCH REMOVAL MC SCH (21:17)
[2020-10-13] MEDS: THIAMINE HCL 100 MG TABLET (FP) PO SCH (21:17)
[2020-10-13] MEDS: METHYL SALICYLATE/MENTHOL OINT 30 GM TUBE TP SCH (21:17)
[2020-10-13] MEDS: IBUPROFEN 600 MG TABLET (FP) PO PRN (21:18)
[2020-10-14] MEDS: HALOPERIDOL 5 MG TABLET PO SCH ×2 (09:51→21:24)
[2020-10-14] MEDS: BENZTROPINE MESYLATE 1 MG TABLET PO SCH ×2 (09:51→21:24)
[2020-10-14] MEDS: BACITRACIN 0.9 GM PACKET TP SCH ×2 (09:52→21:25)
[2020-10-14] MEDS: ARIPiprazole 2 MG TABLET PO SCH (09:52)
[2020-10-14] MEDS: LIDOCAINE 5% TOPICAL PATCH TP SCH (09:53)
[2020-10-14] MEDS: DIVALPROEX 250 MG, DIVALPROEX 500 MG PO SCH ×2 (09:53→21:24)
[2020-10-14] MEDS: PRENATAL VITAMINS W/ FOLIC ACID TABLET (FP) PO SCH (09:54)
[2020-10-14] MEDS: IBUPROFEN 600 MG TABLET (FP) PO PRN (09:54)
[2020-10-14] MEDS ORDERED: NICOTINE POLACRILEX 2 MG GUM BUC PRN (12:47)
[2020-10-14] MEDS: THIAMINE HCL 100 MG TABLET (FP) PO SCH (21:24)
[2020-10-14] MEDS: METHYL SALICYLATE/MENTHOL OINT 30 GM TUBE TP SCH (21:24)
[2020-10-14] MEDS: ACETAMINOPHEN 325 MG TABLET (FP) PO PRN (21:25)
[2020-10-14] MEDS: MELATONIN 5 MG TABLETS PO SCH (23:40)
[2020-10-14] MEDS: LIDOCAINE PATCH REMOVAL MC SCH (23:41)
[2020-10-15] MEDS: DIVALPROEX 250 MG, DIVALPROEX 500 MG PO SCH ×2 (09:52→21:19)
[2020-10-15] MEDS: HALOPERIDOL 5 MG TABLET PO SCH ×2 (09:52→21:19)
[2020-10-15] MEDS: ARIPiprazole 2 MG TABLET PO SCH (09:55)
[2020-10-15] MEDS: BACITRACIN 0.9 GM PACKET TP SCH ×2 (09:55→21:19)
[2020-10-15] MEDS: BENZTROPINE MESYLATE 1 MG TABLET PO SCH ×2 (09:56→21:20)
[2020-10-15] MEDS: PRENATAL VITAMINS W/ FOLIC ACID TABLET (FP) PO SCH (09:56)
[2020-10-15] MEDS: LIDOCAINE 5% TOPICAL PATCH TP SCH (10:51)
[2020-10-15] MEDS: THIAMINE HCL 100 MG TABLET (FP) PO SCH (21:19)
[2020-10-15] MEDS: METHYL SALICYLATE/MENTHOL OINT 30 GM TUBE TP SCH (21:19)
[2020-10-15] MEDS: LIDOCAINE PATCH REMOVAL MC SCH (21:20)
[2020-10-15] MEDS: MELATONIN 5 MG TABLETS PO SCH (21:20)
[2020-10-15] MEDS: ACETAMINOPHEN 325 MG TABLET (FP) PO PRN (21:21)
[2020-10-16] MEDS: ACETAMINOPHEN 325 MG TABLET (FP) PO PRN ×2 (08:18→21:34)
[2020-10-16] MEDS: DIVALPROEX 250 MG, DIVALPROEX 500 MG PO SCH ×2 (09:32→21:32)
[2020-10-16] MEDS: BENZTROPINE MESYLATE 1 MG TABLET PO SCH ×2 (09:33→21:32)
[2020-10-16] MEDS: ARIPiprazole 2 MG TABLET PO SCH (09:33)
[2020-10-16] MEDS: LIDOCAINE 5% TOPICAL PATCH TP SCH (09:33)
[2020-10-16] MEDS: HALOPERIDOL 5 MG TABLET PO SCH ×2 (09:33→21:33)
[2020-10-16] MEDS: BACITRACIN 0.9 GM PACKET TP SCH ×2 (09:33→21:33)
[2020-10-16] MEDS: PRENATAL VITAMINS W/ FOLIC ACID TABLET (FP) PO SCH (09:54)
[2020-10-16] MEDS ORDERED: PT OWN MED DRAWER 7, Y5N ONE (20:14)
[2020-10-16] MEDS: LIDOCAINE PATCH REMOVAL MC SCH (21:33)
[2020-10-16] MEDS: MELATONIN 5 MG TABLETS PO SCH (21:33)
[2020-10-16] MEDS: METHYL SALICYLATE/MENTHOL OINT 30 GM TUBE TP SCH (21:33)
[2020-10-16] MEDS: THIAMINE HCL 100 MG TABLET (FP) PO SCH (21:33)
[2020-10-17] MEDS: IBUPROFEN 600 MG TABLET (FP) PO PRN (07:21)
[2020-10-17] MEDS: HALOPERIDOL 5 MG TABLET PO SCH ×2 (09:55→21:21)
[2020-10-17] MEDS: DIVALPROEX 250 MG, DIVALPROEX 500 MG PO SCH ×2 (09:55→21:22)
[2020-10-17] MEDS: ARIPiprazole 2 MG TABLET PO SCH (09:55)
[2020-10-17] MEDS: BACITRACIN 0.9 GM PACKET TP SCH ×2 (09:56→21:21)
[2020-10-17] MEDS: LIDOCAINE 5% TOPICAL PATCH TP SCH (09:56)
[2020-10-17] MEDS: BENZTROPINE MESYLATE 1 MG TABLET PO SCH ×2 (09:56→21:22)
[2020-10-17] MEDS: ACETAMINOPHEN 325 MG TABLET (FP) PO PRN ×2 (09:57→21:23)
[2020-10-17] MEDS: PRENATAL VITAMINS W/ FOLIC ACID TABLET (FP) PO SCH (09:59)
[2020-10-17] MEDS: MELATONIN 5 MG TABLETS PO SCH (21:23)
[2020-10-17] MEDS: THIAMINE HCL 100 MG TABLET (FP) PO SCH (21:23)
[2020-10-17] MEDS: METHYL SALICYLATE/MENTHOL OINT 30 GM TUBE TP SCH (21:25)
[2020-10-17] MEDS: LIDOCAINE PATCH REMOVAL MC SCH (21:25)
[2020-10-18] MEDS ORDERED: PT OWN MED DRAWER 7, Y5N ONE ×2 (08:49→19:25)
[2020-10-18] MEDS: LIDOCAINE 5% TOPICAL PATCH TP SCH (10:12)
[2020-10-18] MEDS: PRENATAL VITAMINS W/ FOLIC ACID TABLET (FP) PO SCH (10:12)
[2020-10-18] MEDS: HALOPERIDOL 5 MG TABLET PO SCH ×2 (10:13→21:29)
[2020-10-18] MEDS: BACITRACIN 0.9 GM PACKET TP SCH ×2 (10:13→21:27)
[2020-10-18] MEDS: BENZTROPINE MESYLATE 1 MG TABLET PO SCH ×2 (10:13→21:28)
[2020-10-18] MEDS: DIVALPROEX 250 MG, DIVALPROEX 500 MG PO SCH ×2 (10:13→21:27)
[2020-10-18] MEDS: ARIPiprazole 2 MG TABLET PO SCH (10:13)
[2020-10-18] MEDS: ACETAMINOPHEN 325 MG TABLET (FP) PO PRN (10:15)
[2020-10-18] MEDS: MELATONIN 5 MG TABLETS PO SCH (21:26)
[2020-10-18] MEDS: THIAMINE HCL 100 MG TABLET (FP) PO SCH (21:26)
[2020-10-18] MEDS: METHYL SALICYLATE/MENTHOL OINT 30 GM TUBE TP SCH (21:27)
[2020-10-18] MEDS: LIDOCAINE PATCH REMOVAL MC SCH (21:49)
[2020-10-19 07:27] VITALS: BP 110/59; PULSE 91; TEMP 97.5
[2020-10-19] MEDS ORDERED: PT OWN MED DRAWER 7, Y5N ONE (08:53)
[2020-10-19] MEDS: HALOPERIDOL 5 MG TABLET PO SCH (09:16)
[2020-10-19] MEDS: BACITRACIN 0.9 GM PACKET TP SCH (09:16)
[2020-10-19] MEDS: BENZTROPINE MESYLATE 1 MG TABLET PO SCH (09:16)
[2020-10-19] MEDS: DIVALPROEX 250 MG, DIVALPROEX 500 MG PO SCH (09:17)
[2020-10-19] MEDS: ARIPiprazole 2 MG TABLET PO SCH (09:17)
[2020-10-19] MEDS: LIDOCAINE 5% TOPICAL PATCH TP SCH (09:18)
[2020-10-19] MEDS: PRENATAL VITAMINS W/ FOLIC ACID TABLET (FP) PO SCH (09:19)
== END 2020-10-19 09:26 | disposition home or self-care (01) | DRG 772 ==
LOC: YASAS 12:48 → UNDOADMIN 19:19 → Y3W 19:19
PROVIDERS: ADMIT Allergy & Immunology; ATTEND Allergy & Immunology
PROC: HZ42ZZZ Group Counseling for Substance Abuse Treatment, Cognitive-Behavioral (ICD-10-PCS; principal; 2020-10-05)
DX: F10.20 Alcohol dependence, uncomplicated (principal); F14.20 Cocaine dependence, uncomplicated; F12.20 Cannabis dependence, uncomplicated; F17.210 Nicotine dependence, cigarettes, uncomplicated; F19.282 Other psychoactive substance dependence with psychoactive substance-induced sleep disorder; F19.24 Other psychoactive substance dependence with psychoactive substance-induced mood disorder; K59.01 Slow transit constipation; M54.40 Lumbago with sciatica, unspecified side; Z86.2 Personal history of diseases of the blood and blood-forming organs and certain disorders involving the immune mechanism; Z98.84 Bariatric surgery status; Z98.890 Other specified postprocedural states
CPT/HCPCS: 36415; 71101-TC-RT-FY; 80053; 80164; 81003; 85027; 86780; C9803; U0003; U0005